=== PATIENT | male | born 1980 | race Caucasian/White ===

== ENCOUNTER 2017-01-25 14:19 | Emergency (ER) | payer OTHER ==
[~2017-01-25] VITALS: Ht 180.3 cm; Wt 72.6 kg
[2017-01-25 14:30] VITALS: BP 133/82
[2017-01-25] MEDS ORDERED: LIDOCAINE 1% / SOD BICARB 8.4% 20 ML VIAL. IJ ONE ×2 (14:50→15:00)
[2017-01-25] MEDS ORDERED: DIPHTH,PERTUSS(ACELL),TET TOX 0.5 ML DISP.SYRIN. VAX IM ONE ×2 (14:51→15:00)
--- NOTE | 2017-01-25 15:22 | PHYS DOC ---
Past Medical History Past Medical History: No Pertinent History Past Surgical History: No Surgical History Alcohol Use: None Drug Use: None Adult General Chief Complaint Chief Complaint: LACERATION/AVULSION [facility] HPI Patient is a 36 year old male presents to the emergency department with a history of putting a saw blade on the concrete saw that he was working with prior to lunch. He states when he came back and started using the saw the blade came off cutting his 1st and 2nd finger. Patient is unsure when his last tetanus immunization occurred. Bleeding is currently up controlled. Patient does have full range of motion of the fingers with no difficulty. He is able to bend demonstrate normal. He has good sensation to the tips. Patient is right- hand dominant. Review of Systems Review of Systems Constitutional: Denies fever or chills [] Eyes: Denies change in visual acuity, redness, or eye pain [] HENT: Denies nasal congestion or sore throat [] Respiratory: Denies cough or shortness of breath [] Cardiovascular: No additional information not addressed in HPI [] GI: Denies abdominal pain, nausea, vomiting, bloody stools or diarrhea [] : Denies dysuria or hematuria [] Musculoskeletal: Denies back pain or joint pain [] Integument: Denies rash or skin lesions. Laceration to the s1st and 2nd finger on the left hand. Neurologic: Denies headache, focal weakness or sensory changes [] Endocrine: Denies polyuria or polydipsia [] Current Medications Current Medications Current Medications Medications (Trade) Dose Ordered Sig/Marino Start Time Stop Time Status Last Admin Dose Admin Diphtheria/ Tetanus/Acell Pertussis (Boostrix) 0.5 ml STK-MED ONCE 01/25/17 14:51 01/25/17 14:52 DC Lidocaine/Sodium Bicarbonate (Buffered Lidocaine 1%) 20 ml STK-MED ONCE 01/25/17 14:50 01/25/17 14:51 DC Allergies Allergies Allergies Coded Allergies Type Severity Reaction Last Updated Verified No Known Drug Allergies 01/25/17 No Physical Exam Physical Exam Constitutional: Well developed, well nourished, no acute distress, non-toxic appearance. [] HENT: Normocephalic, atraumatic, bilateral external ears normal, oropharynx moist, no oral exudates, nose normal. [] Eyes: PERRLA, EOMI, conjunctiva normal, no discharge. [] Neck: Normal range of motion, no tenderness, supple, no stridor. [] Cardiovascular:Heart rate regular rhythm, no murmur [] Lungs & Thorax: Bilateral breath sounds clear to auscultation [] Skin: Warm, dry, no erythema, no rash. Patient with laceration noted to the second and third finger at the tip. Patient's laceration on the 1st finger appears to be approximately 1.5 cm that doesn't include the nail however does not include the nail bed. They second finger includes the right side of the fingertip that includes the nail with a laceration as proximally 1 cm. Bleeding is currently controlled. Patient has full range of motion of the fingers with no difficulty. Back: No tenderness Extremities: No tenderness, no cyanosis, no clubbing, ROM intact, no edema. [] Neurologic: Alert and oriented X 3, normal motor function, normal sensory function, no focal deficits noted. [] Psychologic: Affect normal, judgement normal, mood normal. [] Current Patient Data Vital Signs Vital Signs Date Time Temp Pulse Resp B/P (MAP) Pulse Ox O2 Delivery O2 Flow Rate FiO2 01/25/17 14:30 98.9 77 18 133/82 (99) 96 Room Air 98.9 EKG EKG [] Radiology/Procedures Radiology/Procedures [][facility] [address], [place] [id number] IMAGING REPORT Signed PATIENT: MICHAEL CAROLINA ACCOUNT: [id number] : 1980 LOCATION: ER AGE: 36 SEX: M EXAM STATUS: REG ER ORD. PHYSICIAN: ANTOINE PARSON APRN REASON: laceration to the left 1st and 2nd finger PROCEDURE: HAND LEFT 3V Indication laceration to the left thumb and index finger. AP oblique and lateral views of the left hand were obtained. No bony abnormality is seen. No radiopaque foreign body is seen in the soft tissues. DICTATED and SIGNED BY: ISAI FREITAS MD DATE: 01/25/17 1530 CC: ANTOINE PARSON APRN; NO PCP; NON,STAFF ~ Course & Med Decision Making Course & Med Decision Making Pertinent Labs and Imaging studies reviewed. (See chart for details) Lidocaine 1% was injected into both the thumb and index finger with approximately 3 ml injected into both fingers. Patient required additional 3 mL digital block into the index finger, left. Site was irrigated with milliliters per each finger normal saline. Sites were explored with no foreign bodies noted in the area. Sites was cleaned with Betadine. 5 interrupted sutures was placed in the left index finger, 3 interrupted sutures was placed in the tuft part of the left thumb. Patient was provided with signs and symptoms to return back to emergency department for. He was provided with signs and symptoms of infection: Redness, warmth, tenderness or any yellow/greenish drainage of a come from the site. Patient was also encouraged to use Tylenol or ibuprofen for pain and discomfort. Ice packs on 20 minutes off 20 minutes several times a day. Patient will be discharged home in stable condition. All questions were answered for the patient at his bedside. [] Dragon Disclaimer Dragon Disclaimer This electronic medical record was generated, in whole or in part, using a voice recognition dictation system. Departure Departure Impression: Primary Impression: Laceration Disposition: 01 HOME, SELF-CARE Condition: STABLE Referrals: NO PCP (PCP) Patient Instructions: Laceration Care, Adult, [id number] Additional Instructions: Your x-rays were negative for any bony abnormalities. Keep the areas clean and dry. Clean the sites twice day with soap and water and apply antibiotic ointment to the area. Ice packs on 20 minutes off 20 minutes several times a day. Elevation as much as possible. Sutures out in 7-10 days. Watch for signs and symptoms of infection: Redness, warmth, tenderness or any yellow/greenish drainage of a come from the site physician occur follow-up to primary care physician immediately. Return to the emergency department sign symptoms of become worse. ANTOINE PARSON APRN Jan 25, 2017 15:22
--- NOTE | 2017-01-25 15:35 | RAD ---
Indication laceration to the left thumb and index finger. AP oblique and lateral views of the left hand were obtained. No bony abnormality is seen. No radiopaque foreign body is seen in the soft tissues.
== END 2017-01-25 16:10 | disposition home or self-care (01) ==
LOC: ER 14:19
DX: S61.212A Laceration without foreign body of right middle finger without damage to nail, initial encounter (principal); S61.210A Laceration without foreign body of right index finger without damage to nail, initial encounter; S61.011A Laceration without foreign body of right thumb without damage to nail, initial encounter; W27.8XXA Contact with other nonpowered hand tool, initial encounter; Y93.89 Activity, other specified; Y92.89 Other specified places as the place of occurrence of the external cause; Y99.8 Other external cause status
CPT/HCPCS: 12001; 73130; 90471; 90715; 99284-25